=== PATIENT | female | born 1945 | race African-American/Black ===

== ENCOUNTER 2017-02-28 08:21 | Emergency (ER) | payer MEDICARE ==
--- NOTE | 2017-02-28 10:43 | RAD ---
CHEST 2 VIEWS: Date: 02/28/17 Comparison made with the 02/07/15 study. FINDINGS: The heart is normal in size. No lobar infiltrate or effusion seen. The right pulmonary artery is a l ittle more prominent than before, but this is probably just due to the patient being turned slightly . The trachea is midline. Some calcification is seen over the left humeral head suggestive of calcif ic tendinitis. Mild degenerative changes are seen in the spine. There are probably some calcified no alejandra in the elly. IMPRESSION: No definite acute findings. POS: HOME
== END 2017-02-28 09:01 | disposition home or self-care (01) ==
LOC: BURERS 08:21
DX: J01.90 Acute sinusitis, unspecified (principal); M19.90 Unspecified osteoarthritis, unspecified site; I10 Essential (primary) hypertension; E03.9 Hypothyroidism, unspecified; Z79.899 Other long term (current) drug therapy
CPT/HCPCS: 71020

== ENCOUNTER 2021-07-28 10:43 | Emergency (ER) | payer MEDICARE | END 2021-07-28 11:20 | disposition home or self-care (01) | LOC: BURERS 10:43 | DX: I10 Essential (primary) hypertension (principal); E03.9 Hypothyroidism, unspecified; M19.90 Unspecified osteoarthritis, unspecified site; Z79.899 Other long term (current) drug therapy | CPT/HCPCS: 99283 ==